=== PATIENT | male | born 1980 | race Caucasian/White ===

== ENCOUNTER 2020-07-03 10:29 | Outpatient (CLI) | payer OTHER ==
--- NOTE | 2020-07-03 11:12 | RAD ---
EXAM: 3 views of the left foot HISTORY: Foot pain after injury COMPARISON: None FINDINGS: 3 views of the left foot shows no evidence of acute fracture or dislocation. Mild soft tiss ue swelling is seen. No degenerative changes are present. IMPRESSION: No evidence of acute osseous abnormality.
== END 2020-07-03 10:30 | disposition home or self-care (01) ==
LOC: SCSRAD 10:29
PROVIDERS: ATTEND Family Medicine
DX: S99.922A Unspecified injury of left foot, initial encounter (principal)